=== PATIENT | male | born 1970 | race Caucasian/White ===

== ENCOUNTER 2024-06-30 22:14 | Emergency (ER) | payer MEDICAID, SELFPAY ==
[2024-06-30] VITALS (9 sets, daily range): BP systolic 152–173; BP diastolic 83–104; PULSE 118–155; RESP 17–53; TEMP 35.9–36.7; O2SAT 93–100
--- NOTE | ~2024-06-30 | XR_ITS ---
EXAMINATION: XR chest 1V portable Exam Date/Time: 06/30/2024 22:40 SCHEDULE ANALYST HISTORY: sob Comparison: None. RESULT: Lines, tubes, and devices: None. Lungs and pleura: Clear. Cardiomediastinal silhouette: Normal. Other: No acute osseous or upper abdominal finding. IMPRESSION: No acute cardiopulmonary process. Reviewed, dictated and finalized at location K. DULE ANALYST
--- NOTE | 2024-06-30 22:18 | ECG_ITS ---
Test Date: 2024-06-30 23:09:47 Measurements Intervals [place] Rate: 115 P: 67 [place]: 124 QRS: 76 QRSD: 94 T: 66 QT: 317 QTc: 439 Interpretive Statements SINUS TACHYCARDIA BORDERLINE T WAVE ABNORMALITY- ANTERIOR LEADS BASELINE ARTIFACT- II, III ABNORMAL ECG No previous ECG available for comparison Electronically Signed On 07-01-2024 06:26:17 [employer] ARCHITECT by Shawn Verduzco D.O.
[2024-06-30] MEDS: IPRATROPIUM 0.5 MG/ALBUTEROL SULFATE 2.5 MG AMPUL.NEB 3 ML INHALATION (22:33)
[2024-06-30] MEDS: IPRATROPIUM 0.5 MG/ALBUTEROL SULFATE 2.5 MG AMPUL.NEB 3 ML 12 ML INHALATION (22:33)
[2024-06-30] MEDS: EPINEPHrine HCL INJ 1 MG/ML AMPUL 0.3 MG IM (22:39)
[2024-06-30] MEDS: SODIUM CHLORIDE 0.9% IV 1,000 ML 999 ML IV CONT (22:39)
[2024-06-30] MEDS: dexAMETHasone SOD PHOS INJ 10 MG/ML 1 ML VIAL IV PUSH (22:40)
[2024-06-30] MEDS: MAGNESIUM SULF 2 GM/WATER 50ML 2 GM/50 ML BAG IVPB (22:42)
[2024-06-30 22:44] LABS: Alveolar/Arterial O2 Gradient 139.8 mmHg; Base Excess ABG 1.3 mEq/l (+/-2.0); Fractional Inspired Oxygen 52 %; HCO3 ABG 27.1 mEq/l (22.0-26.0); Modified Allen's Test Pass; Oxygen Content ABG 19.4 %vol (16.0-22.0); Oxygen Saturation ABG 99.2 % (95.0-100.0); Oxyhemoglobin 98.7 % THb (90.0-100.0); PCO2 ABG 47.4 mmHg (35.0-45.0); PO2 ABG 177.9 mmHg (80.0-100.0); PO2 FiO2 Ratio Arterial Blood 3.42 %; Site Drawn RIGHT RADIAL; Total Hemoglobin 13.7 g/dL (12.0-18.0); pH ABG 7.375 (7.350-7.450)
[2024-06-30 22:45] LABS: Basophils Percent Auto 0.4 % (0.2-1.2); Eosinophils Absolute Auto 1.2 K/mm3 (0-0.3); Eosinophils Percent Auto 11.9 % (0-4.4); Hematocrit 43.1 % (42.0-52.0); Hemoglobin 14.2 g/dL (14.0-18.0); Immature Granulocyte Absolute 0.04 K/mm3 (0.00-0.031); Immature Granulocyte Percent A 0.4 % (0-0.5); Lymphocytes Absolute Auto 2.61 K/mm3 (0.9-3.2); Lymphocytes Percent Auto 26.9 % (18.3-44.2); Mean Corpuscular HGB Conc 32.9 g/dl (32-36); Mean Corpuscular Hemoglobin 28.9 pg (26-34); Mean Corpuscular Volume 87.8 fl (80-100); Mean Platelet Volume 8.6 fl (7.4-10.4); Monocytes Absolute Auto 0.8 K/mm3 (0.1-0.6); Monocytes Percent Auto 7.9 % (2.6-8.5); Neutrophils Absolute Auto 5.1 K/mm3 (1.3-6.7); Neutrophils Percent Auto 52.5 % (45.5-73.1); Platelet Count Result 324 k/mm3 (150-375); Red Blood Count 4.91 M/mm3 (4.6-6.20); Red Cell Distribution Width 14.6 % (11.5-14.5); White Blood Count 9.7 K/mm3 (4.5-10.0)
[2024-06-30 22:45] LABS: Device OTHER DEVICE
[2024-06-30 22:56] LABS: Alanine Aminotransferase 34 U/L (6-50); Albumin Level 4.8 g/dL (3.5-5.1); Alkaline Phosphatase 92 U/L (38-126); Anion Gap 10 mmol/L (4-12); Aspartate Amino Transferase 37 U/L (17-59); Bilirubin,Total 0.4 mg/dL (0.2-1.3); Blood Urea Nitrogen 22 mg/dL (9-20); Carbon Dioxide 31 mmol/L (22-30); Chloride 103 mmol/L (98-107); Estimated CRCL calculation 61 ml/min; Estimated Glomerular Filt Rate > 60; Glucose 95 mg/dL (65-110); Potassium 4.4 mmol/L (3.4-5.0); Sodium 144 mmol/L (137-145)
--- NOTE | 2024-06-30 23:45 | ED_ITS ---
HPI - General Adult General Chief complaint: Shortness of Breath/Dyspnea Stated complaint: sob Time Seen by Provider: 06/30/24 22:26 History of Present Illness HPI narrative: This is a 63-year-old male history of COPD/asthma presenting for difficulty breathing. Patient says he has been doing well for the last several days but acutely tonight and 9:00 p.m. new trended was sleepy became short of breath he was out of his inhaler. He was then brought to the ED for further evaluation. He denies recent viral illness fevers chills chest pain productive cough abdominal pain or trauma team. Related Data Allergies Allergy/AdvReac Type Severity Reaction Status Date / Time Penicillins Allergy Unknown Unknown Verified 06/30/24 22:27 Exam 2 Narrative: APPEARANCE: 2 word dyspnea, tripoding Head: atraumatic. EYES: EOMI, NOSE: Atraumatic NECK: Trachea midline RESPIRATORY: Wheezing in all trimble CARDIOVASCULAR: RRR, ABDOMINAL: Non-distended MUSCULOSKELETAl: No obvious deformities NEURO: Alert. Moving 4/4 extremities SKIN:: Warm, dry. Normal color PSYCHIATRIC: Normal affect Course Vital Signs Vital signs: Vital Signs Temperature 96.7 F L 06/30/24 22:16 Pulse Rate 144 H 06/30/24 22:16 Respiratory Rate 30 H 06/30/24 22:16 Blood Pressure 173/104 H 06/30/24 22:16 Pulse Oximetry 93 06/30/24 22:16 Oxygen Delivery Room Air 06/30/24 22:16 Temperature 98.1 F 06/30/24 23:35 Pulse Rate 118 H 06/30/24 23:35 Respiratory Rate 17 06/30/24 23:35 Blood Pressure 152/83 H 06/30/24 23:35 Pulse Oximetry 100 06/30/24 23:35 Oxygen Delivery Room Air 06/30/24 22:28 Medical Decision Making [facility] Narrative Medical decision making narrative: -Course: 53-year-old male asthma/COPD using with acute shortness of breath. He has wheezing in all trimble. Given 1 hour long DuoNeb treatment steroids magnesium IM epinephrine. Patient's condition improved dramatically. Laboratory studies chest x-ray viral swabs were negative. We discussed admission versus discharge and the patient states that he is better would like to. He will be given refills on his inhalers and a course of prednisone. Given return precautions. -DDX includes but is not limited to: Asthma exacerbation, viral illness, pneumonia Vital Signs Vital Signs: Vital Signs Temperature 96.7 F L 06/30/24 22:16 Pulse Rate 144 H 06/30/24 22:16 Respiratory Rate 30 H 06/30/24 22:16 Blood Pressure 173/104 H 06/30/24 22:16 Pulse Oximetry 93 06/30/24 22:16 Oxygen Delivery Room Air 06/30/24 22:16 Temperature 98.1 F 06/30/24 23:35 Pulse Rate 118 H 06/30/24 23:35 Respiratory Rate 17 06/30/24 23:35 Blood Pressure 152/83 H 06/30/24 23:35 Pulse Oximetry 100 06/30/24 23:35 Oxygen Delivery Room Air 06/30/24 22:28 Lab Data 06/30/24 22:38 06/30/24 22:38 Labs: Lab Results 06/30/24 Range/Units 22:38 WBC 9.7 (4.5-10.0) K/mm3 RBC 4.91 (4.6-6.20) M/mm3 Hgb 14.2 (14.0-18.0) g/dL Hct 43.1 (42.0-52.0) % MCV 87.8 (80-100) fl MCH 28.9 (26-34) pg MCHC 32.9 (32-36) g/dl RDW 14.6 H (11.5-14.5) % Plt Count 324 (150-375) k/mm3 MPV 8.6 (7.4-10.4) fl Immature Gran % (Auto) 0.4 (0-0.5) % Neut % (Auto) 52.5 (45.5-73.1) % Lymph % (Auto) 26.9 (18.3-44.2) % Young % (Auto) 7.9 (2.6-8.5) % Eos % (Auto) 11.9 H (0-4.4) % Baso % (Auto) 0.4 (0.2-1.2) % Lymph # (Auto) 2.61 (0.9-3.2) K/mm3 Young # (Auto) 0.8 H (0.1-0.6) K/mm3 Eos # (Auto) 1.2 H (0-0.3) K/mm3 Baso # (Auto) 0.0 (0.0-0.1) K/mm3 Abs Immat Gran (auto) 0.04 H (0.00-0.031) K/mm3 Absolute Neuts (auto) 5.1 (1.3-6.7) K/mm3 Absolute Nucleated RBC 0.000 (0.0-0.012) K/mm3 Nucleated RBC % 0.0 (0.0-0.2) % Sodium 144 (137-145) mmol/L Potassium 4.4 (3.4-5.0) mmol/L Chloride 103 (98-107) mmol/L Carbon Dioxide 31 H (22-30) mmol/L Anion Gap 10 (4-12) mmol/L BUN 22 H (9-20) mg/dL Creatinine 1.22 (0.7-1.3) mg/dL Estim Creat Clear Calc 61 ml/min Estimated GFR > 60 (59 - ) Glucose 95 (65-110) mg/dL Calcium 10.0 (8.4-10.2) mg/dL Total Bilirubin 0.4 (0.2-1.3) mg/dL AST 37 (17-59) U/L ALT 34 (6-50) U/L Alkaline Phosphatase 92 (38-126) U/L Total Protein 9.0 H (6.3-8.2) g/dL Albumin 4.8 (3.5-5.1) g/dL Influenza A (RT-PCR) Pending Influenza B (RT-PCR) Pending RSV (RT-PCR) Pending SARS-CoV-2 RNA (RT-PCR) Pending ABG Data ABG results: 06/30/24 22:31 Puncture Site Right radial ABG pH 7.375 ABG pCO2 47.4 H ABG pO2 177.9 H ABG PO2/FiO2 Ratio 3.42 ABG HCO3 27.1 H ABG O2 Saturation 99.2 ABG O2 Content 19.4 ABG Base Excess 1.3 A-a Gradient 139.8 Oxyhemoglobin 98.7 Total Hemoglobin 13.7 O2 Delivery Device Other device O2 Liters/Min 9.0 FiO2 52 Discharge Plan Discharge Clinical Impression: Asthma Patient Disposition: Home, Self-Care Condition: Stable Instructions: Antibiotic Form, Asthma (ED) Patient Language: American Prescriptions: New prednisone 50 mg tablet 50 mg PO DAILY Qty: 5 0RF albuterol sulfate [Ventolin HFA] 90 mcg/actuation HFA aerosol inhaler 1 inh inhalation QID Qty: 8.5 0RF Follow-up/Referrals: PHYSICIAN,HOME TEACHING GRADES 9 THRU 12 TEACHER [Primary Care Provider] -
--- OUTSIDE RECORDS SUMMARY | 2024-06-30 23:54 | XMS_ITS | Clinical Summary ---
Author Organization [facility] Address [facility] [place] [address] Care Team Providers Care Mailroom Assistant Name Role Phone New Referring, Provider Primary Care Provider Un available Allergies Active Allergy Reactions Criticality Noted Date Comments Penicillins Unknown 10/17/2022 Medications albuterol sulfate HFA 108 (90 Base) MCG/ACT inhaler Inhale 2 puffs into the lungs every 6 (six) hours as needed for Wheezing. 8 g 06/06/19 25 Active HYDROcodone-ac etaminophen (NORCO) 5-325 MG tabletIndicati ons:Acute Pain < 7 Day Supply Take 1-2 tablets by mouth every 6 (six) hours as needed for Pain. Indications: Acute Pain < 7 Day Supply 14 tablet 02/08/20 23 025 Discontinued diclofenac sodium (VOLTAREN) 1 % gel Apply 2 g topically 4 (four) times daily. Apply to left shoulder 4 times daily as needed per package labeling 50 g 02/08/20 23 025 Discontinued predniSONE (DELTASONE) 20 MG tablet Take 1 tablet (20 mg total) by mouth daily for 4 days. 4 tablet 06/06/19 25 025 Encounters Date Type Department Care Team Description 06/06/2024 12:07 PM INSURANCE SALESMAN - 06/06/2024 2:26 PM INSURANCE SALESMAN Emergency [facility] [address], [place] [id number] Deshaun Corrales MD Shortness Of Breath ; Chest Pain Discharge Disposition: Home or Self Care (Routine Discharge) 06/06/2024 Travel from Last 3 Months Social History Tobacco Use Types Packs/Day Years Used Date Smoking Tobacco: Never Assessed Sex and Gender Information Value Date Recorded Sex Assigned at Male 06/06/2024 1:59 PM INSURANCE SALESMAN Legal Sex Male 9:09 PM INSURANCE SALESMAN Gender Identity Not on file Sexual Orientation Not on file Last Filed Vital Signs Vital Sign Reading Time Taken Comments Blood Pressure 116/75 06/06/2024 2:25 PM INSURANCE SALESMAN Pulse 115 06/06/2024 2:25 PM INSURANCE SALESMAN Temperature 36.9 C (98.4 F) 06/06/2024 2:26 PM INSURANCE SALESMAN Respiratory Rate 26 06/06/2024 2:25 PM INSURANCE SALESMAN Oxygen Saturation 99% 06/06/2024 2:25 PM INSURANCE SALESMAN Inhaled Oxygen Concentration - - Weight 69.3 kg (152 lb 12.5 oz) 025 12:10 PM INSURANCE SALESMAN Height 177.8 cm (5' 10 ) 06/06/2024 12: 10 PM INSURANCE SALESMAN Body Mass Index 21.92 06/06/2024 12:10 PM INSURANCE SALESMAN Plan of Treatment Health Maintenance Due Date Last Done Comments Colorectal Cancer Screening Colonoscopy (10 Years) 1969 Annual Physical 1972 Hepatitis C 08/05/1987 DTaP, Tdap and Td Vaccines ( 1 - Tdap) 1988 Hepatitis B Vaccines (1 of 3 - 19+ 3-dose series) 1988 Pneumococcal Vaccine: Pediatrics (0 to 5 Years) and At-Risk Patients (6 to 64 Years) (2 of 2 - PCV) 04/02/2015 04/02/2014 Zoster Vaccines (1 of 2) 08/05/2019 COVID-19 Vaccine (1 - 2023-2 5 season) 2024 Influenza Adult (#1) 2024 03/10/2016, 04/02/2014 Meningococcal B Vaccine Aged Out No l onger eligible based on patient's age to complete this topic Meningococcal Vaccine Aged Out No neha xander eligible based on patient's age to complete this topic RSV Immunizations Under 20 Months Aged Out No longer eligible b ased on patient's age to complete this topic Procedures Procedure Name Priority Date/Time Associated Diagnosis Comments ECG 12-LEAD STAT 06/06/2024 12:32 PM INSURANCE SALESMAN MAGNESIUM STAT 06/06/2024 12:22 PM INSURANCE SALESMAN D-DIMER, QUANTITATIVE STAT 06/06/2024 12:22 PM INSURANCE SALESMAN PRO-BRAIN NATRIURETIC PEPTIDE STAT 06/06/2024 12:22 PM INSURANCE SALESMAN TROPONIN, QUANT STAT 06/06/2024 12:22 PM INSURANCE SALESMAN COMPREHENSIVE METABOLIC PANEL STAT 06/06/2024 12:22 PM INSURANCE SALESMAN CBC W/DIFF AUTOMATED STAT 06/06/2024 12:22 PM INSURANCE SALESMAN XR CHEST PORTABLE STAT 06/06/2024 12: 21 PM INSURANCE SALESMAN from Last 3 Months Results * ECG 12 lead (06/06/2024 12:32 PM INSURANCE SALESMAN) 06/06/2024 12:3 2 PM INSURANCE SALESMAN Narrative [facility] - 06/06/2024 12:40 PM INSURANCE SALESMAN SJS-ED Test Date: 2024-06-06 Pat Name: [facility] ED Department: 70 Room: [id number] Gender: Male Ceramic Plater: ANGELITO : 1970 Requested By: ALOK JACINTO Order Number: [id number] Reading MD: Ovi Vasquez Measurements Intervals [place] Rate: 108 P: 80 SC: 140 QRS: 74 QRSD: 86 T: 49 QT: 336 QTc: 451 Interpretive Statements SINUS TACHYCARDIA POSSIBLE LEFT ATRIAL ENLARGEMENT [-0.1mV P-WAVE IN V1/V2] ABNORMAL RHYTHM ECG noise RANCE SALESMAN Procedure Note Ovi Vasquez MD - 06/06/2024 S-ED Test Date: 2024-06-06 Pat Name: [facility] ED Department: 70 Room: [id number] Gender: Male Ceramic Plater: ANGELITO : 1970 Requested By: ALOK JACINTO Order Number: [id number] Reading : Ovi Vasquez Measurements Intervals [place] Rate: 108 P: 80 SC: 140 QRS: 74 QRSD: 86 T: 49 QT: 336 QTc: 451 Interpretive Statements SINUS TACHYCARDIA POSSIBLE LEFT ATRIAL ENLARGEMENT [-0.1mV P-WAVE IN V1/V2] ABNORMAL RHYTHM ECG noise RANCE SALESMAN us Alok Jacinto MD ECG ORDERABLES Final Result Performing Organization Address [facility] de Phone Number [facility] * PRO-BRAIN NATRIURETIC PEPTIDE (06/06/2024 12:22 PM INSURANCE SALESMAN) Pathologist [facility] PRO-B TYPE NATRIURETIC PEPTIDE 60 <125 PG/ML 06/06/2024 1:11 PM INSURANCE SALESMAN [facility] Comment: AGE INDEPENDENT: <300 PG/ML HAS A 99% NEGATIVE PREDICTIVE VALUE FOR EXCLUDING ACUTE CHF <50 YEARS: >450 PG/ML IS CONSISTENT WITH ACUTE CHF 50-75 YEARS: >900 PG/ML IS CONSISTENT WITH ACUTE CHF >75 YEARS: >1800 PG/ML IS CONSISTENT WITH ACUTE CHF IN PATIENTS WITH RENAL INSUFFICIENCY (GFR <60), >1200 PG/ML YIELDS A DIAGNOSTIC SENSITIVITY AND SPECIFICITY OF 89% AND 72% FOR ACUTE CHF. 06/06/2024 12:2 2 PM INSURANCE SALESMAN us Alok Jacinto MD LABORATORY Final Result Performing Organization Address [facility] de Phone Number [facility] [address] [place] [address], [phone] * (ABNORMAL) COMPREHENSIVE METABOLIC PANEL (06/06/2024 12:22 PM INSURANCE SALESMAN) SODIUM S/P/B 135(L) 136 - 145 MMOL/L 06/06/2024 1:11 PM INSURANCE SALESMAN [facility] POTASSIUM S/P/B 3.3(L) 3.5 - 5.1 MMOL/L 06/06/2024 1:11 PM INSURANCE SALESMAN [facility] CHLORIDE S/P/B 103 97 - 115 MMOL/L 06/06/2024 1:11 PM INSURANCE SALESMAN [facility] CO2 24.2 21.0 - 32.0 MMOL/L 06/06/2024 1:11 PM [facility] GLUCOSE 107(H) 74 - 106 MG/DL 06/06/2024 1:11 PM [facility] BUN 11 7 - 18 MG/DL 06/06/2024 1:11 PM [facility] CREATININE S/P/B 1.10 0.70 - 1.30 MG/DL 06/06/2024 1:11 PM [facility] CALCIUM S/P/B 9.5 8.5 - 10.1 MG/DL 06/06/2024 1:11 PM [facility] BILIRUBIN TOTAL S/P/B 0.4 0.2 - 1.0 MG/DL 06/06/2024 1:11 PM [facility] ALKALINE PHOSPHATASE S/P/B 92 45 - 115 U/L 06/06/2024 1:11 PM [facility] AST 30 15 - 37 U/L 06/06/2024 1:11 PM [facility] ALT 42 16 - 61 U/L 06/06/2024 1:11 PM [facility] TOTAL PROTEIN S/P/B 8.0 6.4 - 8.2 G/DL 06/06/2024 1:11 PM [facility] ALBUMIN S/P/B 3.9 3.4 - 5.0 G/DL 06/06/2024 1:11 PM [facility] ANION GAP 7.8 2.0 - 10.0 MMOL/L 06/06/2024 1:11 PM [facility] OSMOLALITY (CALC) 280 MOSM/KG 025 1:11 PM [facility] Comment:REFERENCE RANGE NOT ESTABLISHED GFR ESTIMATE 80(L) >90 ML/MIN/1. 73 M2 06/06/2024 1:11 PM [facility] GFR NOTES GFR REFERENCE S: 06/06/2024 1:11 PM [facility] Comment: THE ESTIMATED GFR IS CALCULATED USING THE 2020 CKD-EPI EQUATION. THE FOLLOWING CATEGORIES FOR GRADING RENAL FUNCTION ARE RECOMMENDED BY THE INTERNATIONAL SOCIETY OF NEPHROLOGY (KDIGO 2012 CLINICAL PRACTICE GUIDELINE). G1,NORMAL OR HIGH: >89 ml/min/1.73 m2 G2,MILDLY DECREASED: 60-89 ml/min/1.73 m2 G3A,MILDLY TO MODERATELY DECREASED: 45-59 ml/min/1.73 m2 G3B,MODERATELY TO SEVERELY DECREASED: 30-44 ml/min/1.73 m2 G4,SEVERELY DECREASED: 15-29 ml/min/1.73 m2 G5,KIDNEY FAILURE: <15 ml/min/1.73 m2 06/06/2024 12:2 2 PM INSURANCE SALESMAN us Alok Jacinto MD LABORATORY Final Result Performing Organization Address [facility] de Phone Number [facility] [address] [place] [address], [phone] * D-DIMER, QUANTITATIVE (06/06/2024 12:22 PM INSURANCE SALESMAN) D-DIMER 377 0 - 500 ng{FEU}/mL 06/06/2024 12:59 PM INSURANCE SALESMAN [facility] EXCLUSION STATEMENT 06/06/2024 12:59 PM INSURANCE SALESMAN [facility] Comment: D-Dimer values less than or equal to 500 ng/mL FEU have a negative predictive value of >95% for exclusion of deep vein thrombosis and pulmonary embolism. In patients over 50 (who tend to have higher normal baseline D-Dimer values), recent studies suggest age-adjusted D-Dimer cutoff values (calculated as: age [years] x 10 ng/mL) result in equivalent outcomes and no additional false negative findings. 06/06/2024 12:2 2 PM INSURANCE SALESMAN us Alko Jacinto MD LABORATORY Final Result Performing Organization Address [facility] de Phone Number [facility] [address] [place] [address], [phone] * (ABNORMAL) CBC W/DIFF AUTOMATED (06/06/2024 12:22 PM INSURANCE SALESMAN) [facility] Signature WBC 6.58 4.00 - 10.80 x10'3/uL 06/06/2024 12:50 PM INSURANCE SALESMAN [facility] RBC 4.89 4.50 - 6.10 x10'6/uL 06/06/2024 12:50 PM [facility] HGB 13.6 12.0 - 16.0 G/DL 06/06/2024 12:50 PM [facility] HCT 41.0 37.0 - 52.0 % 06/06/2024 12:50 PM [facility] MCV 83.8 78.0 - 100.0 FL 06/06/2024 12:50 PM [facility] MCH 27.8 27.0 - 31.0 PG 06/06/2024 12:50 PM [facility] MCHC 33.2 33.0 - 36.0 G/DL 06/06/2024 12:50 PM [facility] RDW 13.5 11.5 - 14.5 % 06/06/2024 12:50 PM [facility] PLT 364(H) 150 - 350 x10'3/uL 06/06/2024 12:50 PM [facility] MPV 8.6 7.4 - 10.4 FL 06/06/2024 12:50 PM [facility] DIFFERENTIAL TYPE AUTOMATED DIFFERENTIAL 06/06/2024 12:50 PM [facility] SEG NEUTROPHILS 54.4 % 12:50 PM [facility] LYMPHOCYTES 26.0 % 06/06/2024 12:50 PM [facility] MONOCYTES 8.8 % 06/06/2024 12:50 PM [facility] EOSINOPHILS 9.4 % 06/06/2024 12:50 PM [facility] BASOPHILS 1.1 % 06/06/2024 12:50 PM INSURANCE SALESMAN [facility] IMMATURE GRANS % 0.3 % 06/06/19 12:50 PM INSURANCE SALESMAN [facility] ABS. NEUTROPHILS 3.58 1.60 - 8.30 x10'3/uL 06/06/2024 12:50 PM INSURANCE SALESMAN [facility] ABS. LYMPHOCYTES 1.71 0.80 - 4.70 x10'3/uL 06/06/2024 12:50 PM INSURANCE SALESMAN [facility] ABS. MONOCYTES 0.58 0.00 - 1.50 x10'3/uL 06/06/2024 12:50 PM INSURANCE SALESMAN [facility] ABS. EOSINOPHILS 0.62(H) 0.00 - 0.40 x10'3/uL 06/06/2024 12:50 PM INSURANCE SALESMAN [facility] ABS. BASOPHILS 0.07 0.00 - 0.20 x10'3/uL 06/06/2024 12:50 PM INSURANCE SALESMAN [facility] ABS. IMMATURE GRANULOCYTES 0.02 0.00 - 0.03 x10'3/uL 06/06/2024 12:50 PM INSURANCE SALESMAN [facility] ABS. NUCLEATED RBC'S 0.00 0.00 - 0.01 x10'3/uL 06/06/2024 12:50 PM INSURANCE SALESMAN [facility] NRBC % 0.0 % 06/06/2024 12:50 PM INSURANCE SALESMAN [facility] 06/06/2024 12:2 2 PM INSURANCE SALESMAN us Alok Jacinto MD LABORATORY Final Result [facility] [address] [place] [address], [phone] * TROPONIN, QUANT (06/06/2024 12:22 PM INSURANCE SALESMAN) TROPONIN I HIGH SENSITIVITY 4 0 - 78 ng/L 06/06/2024 1:11 PM INSURANCE SALESMAN [facility] 06/06/2024 12:2 2 PM INSURANCE SALESMAN us Alok Jacinto MD LABORATORY Final Result Performing Organization Address City/[facility]/ZIP Co de Phone Number [facility] [address] [place] [address], [place] [phone] * MAGNESIUM (06/06/2024 12:22 PM INSURANCE SALESMAN) MAGNESIUM 1.9 1.6 - 2.6 MG/DL 06/06/2024 1:11 PM INSURANCE SALESMAN [facility] 06/06/2024 12:2 2 PM INSURANCE SALESMAN us Alok Jacinto MD LABORATORY Final Result Performing Organization Address [facility] de Phone Number [facility] [address] [place] [address], [place] [phone] * XR CHEST PORTABLE (06/06/2024 12:21 PM INSURANCE SALESMAN) Anatomical Region Laterality Modality Chest Radiographic Tonya ging 06/06/2024 12:2 6 PM INSURANCE SALESMAN Impressions 06/06/2024 12:28 PM INSURANCE SALESMAN IMPRESSION: No active cardiopulmonary disease. Ordered By: ALOK JACINTO Interpreted By: Jose Angel Vinson MD, 06/06/2024 12:26 PM Narrative 06/06/2024 12:28 PM INSURANCE SALESMAN [facility] [address] [place], [place] [address] 06/06/2024, 1211 hours. HISTORY: Dyspnea. Short of breath. Chest pressure and weakness. EXAM: Erect portable AP chest. Correlation to study 10/17/2022. FINDINGS: The lungs are clear of active infiltrates. The heart size and pulmonary vascularity are within normal limits. No pleural effusion. No pneumothorax. Procedure Note Jose Angel Vinson MD - 06/06/2024 [facility] [address] [place], [place] [address] 06/06/2024, 1211 hours. HISTORY: Dyspnea. Short of breath. Chest pressure and weakness. EXAM: Erect portable AP chest. Correlation to study 10/17/2022. FINDINGS: The lungs are clear of active infiltrates. The heart size andpulmonary vascularity are within normal limits. No pleural effusion. Nopneumothorax. IMPRESSION: No active cardiopulmonary disease. Ordered By: ALOK JACINTO Interpreted By: Jose Angel Vinson MD, 06/06/2024 12:26 PM Alok Jacinto MD GENERAL IMAGING Final Result from Last 3 Months [id number] [address] [place] [address] Care Teams Mailroom Assistant Relationship Specialty Start Date End Date New Referring, Provider PCP - General UNKNOWN PHYSICIAN SPECIALTY 10/17/22
[2024-07-01 00:14] LABS: Influenza A QL RT-PCR Negative (Negative); Influenza B QL RT-PCR Negative (Negative); RSV RNA, RT-PCR Negative (Negative); SARS-CoV-2 RNA PCR Negative (Negative)
[2024-07-01 01:23] VITALS: BP 154/72; PULSE 113; RESP 20; TEMP 36.7; O2SAT 98
== END 2024-07-01 01:24 | disposition home or self-care (01) ==
LOC: ANHED 23:53
PROVIDERS: Emergency Provider Emergency Medicine
DX: J45.909 Unspecified asthma, uncomplicated (principal)
CPT/HCPCS: 36415; 36600; 71045; 80053; 82805; 85018; 85025; 87637; 93005; 94640; 96365; 96368; 96372; 99284; J0171; J1100; J3475; J7030